=== PATIENT | female | born 1985 | race Caucasian/White ===

== ENCOUNTER 2020-11-15 11:31 | Outpatient (REF) | payer OTHER, SELFPAY ==
[2020-11-15 13:54] LABS: MANUAL DIFF FLAG NO
[2020-11-15 14:04] LABS: Basophils Percent Auto 0.2 % (0-2); Eosinophils Absolute Auto 0.1 X10*3/uL (0.0-0.4); Eosinophils Percent Auto 2.7 % (0-4); Hematocrit 42.6 % (37-47); Hemoglobin 14.1 g/dl (12.0-16.0); Imm Gran Abs Auto 0.02 X10*3/uL (0.00-0.03); Imm Gran Pct Auto 0.5 % (0.0-0.4); Lymphocytes Percent Auto 24.1 % (20-40); Mean Corpuscular HGB Conc 33.1 g/dl (31.0-35.0); Mean Corpuscular Hemoglobin 28.8 pg (27.0-33.0); Mean Corpuscular Volume 87.1 fL (80-98); Mean Platelet Volume 11.1 fL (9.4-12.3); Monocytes Absolute Auto 0.4 X10*3/uL (0.1-1.2); Neutrophils Absolute Auto 2.6 X10*3/uL (2.0-8.3); Neutrophils Percent Auto 63.5 % (45-73); Platelet Count 246 X10*3/uL (160-400); Red Blood Count 4.89 X10*6/uL (4.20-5.50); White Blood Count 4.1 X10*3/uL (4.8-10.8)
[2020-11-15 14:38] LABS: Alanine Aminotransferase 38 U/L (0-31); Albumin Level 4.4 g/dL (3.5-5.0); Alkaline Phosphatase 86 U/L (39-117); Anion Gap 13 (12-20); Aspartate Amino Transferase 25 U/L (5-31); Bilirubin Total 0.4 mg/dL (0.0-1.0); Blood Urea Nitrogen 7 mg/dL (9-16); Calcium 9.3 mg/dL (8.4-10.2); Carbon Dioxide 27 mmol/L (22-29); Chloride 101 mmol/L (96-108); Cholesterol 214 mg/dL; Estimated Glomerular Filt Rate > 60; Glucose Random 84 mg/dL (60-115); Potassium 4.3 mmol/L (3.3-5.1); Sodium 137 mmol/L (135-145); Total Protein 7.3 g/dL (6.5-8.0)
[2020-11-15 15:00] LABS: Thyroid Stimulating Hormone 2.25 uIU/mL (0.32-4.0)
== END 2020-11-15 11:32 | disposition home or self-care (01) ==
LOC: HO.10HDL 11:31
PROVIDERS: Visit Provider Internal Medicine
DX: Z00.00 Encounter for general adult medical examination without abnormal findings (principal); R63.5 Abnormal weight gain
CPT/HCPCS: 36415; 80053; 82465; 84443; 85025

== ENCOUNTER 2021-04-11 16:07 | Outpatient (REF) | payer OTHER, SELFPAY ==
[2021-04-11 17:36] LABS: MANUAL DIFF FLAG NO
[2021-04-11 17:41] LABS: Basophils Percent Auto 0.2 % (0-2); Eosinophils Absolute Auto 0.1 X10*3/uL (0.0-0.4); Eosinophils Percent Auto 1.7 % (0-4); Hematocrit 44.7 % (37-47); Hemoglobin 14.7 g/dl (12.0-16.0); Imm Gran Abs Auto 0.02 X10*3/uL (0.00-0.03); Imm Gran Pct Auto 0.3 % (0.0-0.4); Lymphocytes Percent Auto 16.8 % (20-40); Mean Corpuscular HGB Conc 32.9 g/dl (31.0-35.0); Mean Corpuscular Hemoglobin 30.4 pg (27.0-33.0); Mean Corpuscular Volume 92.4 fL (80-98); Mean Platelet Volume 11.4 fL (9.4-12.3); Monocytes Absolute Auto 0.8 X10*3/uL (0.1-1.2); Monocytes Percent Auto 13.6 % (2-11); Neutrophils Absolute Auto 3.9 X10*3/uL (2.0-8.3); Neutrophils Percent Auto 67.4 % (45-73); Platelet Count 259 X10*3/uL (160-400); Red Blood Count 4.84 X10*6/uL (4.20-5.50); Red Cell Distribution Width 13.6 % (11.0-16.0); White Blood Count 5.7 X10*3/uL (4.8-10.8)
[2021-04-11 17:52] LABS: Glucose Urine UA NEG (NEG); Leukocyte Esterase Urine NEG (NEG); Nitrite Urine NEG (NEG); Specific Gravity - Urine >= 1.030 (1.005-1.025); Urine Blood NEG (NEG); Urine Ketones 5 MG/DL (NEG); Urine Protein NEG (NEG-TRACE)
[2021-04-11 17:53] LABS: Appearance Urine CLEAR; Color Urine YELLOW
[2021-04-11 18:07] LABS: Calcium Oxalate Crystals Urine TRACE /LPF; RBC Urine 0-2 /HPF (0); Squamous Epithelial Cell Urine 2+ /LPF; WBC Urine 0-2 /HPF (0-4)
[2021-04-11 18:27] LABS: Alanine Aminotransferase 14 U/L (0-31); Albumin Level 4.1 g/dL (3.5-5.0); Alkaline Phosphatase 84 U/L (39-117); Anion Gap 12 (12-20); Aspartate Amino Transferase 16 U/L (5-31); Bilirubin Total 0.5 mg/dL (0.0-1.0); Blood Urea Nitrogen 11 mg/dL (9-16); C Reactive Protein 0.82 mg/dL (< or = 0.50); Calcium 9.5 mg/dL (8.4-10.2); Carbon Dioxide 27 mmol/L (22-29); Chloride 105 mmol/L (96-108); Estimated Glomerular Filt Rate > 60; Glucose Random 92 mg/dL (60-115); Potassium 4.6 mmol/L (3.3-5.1); Sodium 139 mmol/L (135-145); Total Protein 7.1 g/dL (6.5-8.0)
== END 2021-04-11 16:08 | disposition home or self-care (01) ==
LOC: HO.LAB 16:07
PROVIDERS: PCP Internal Medicine; Visit Provider Internal Medicine
DX: R10.9 Unspecified abdominal pain (principal)
CPT/HCPCS: 36415; 80053; 81001; 85025; 86140; 87086

== ENCOUNTER 2022-03-13 15:43 | Outpatient (REF) | payer OTHER, SELFPAY | END 2022-03-13 15:44 | disposition home or self-care (01) | LOC: HO.LAB 15:43 | PROVIDERS: PCP Internal Medicine; Visit Provider Internal Medicine | DX: Z13.89 Encounter for screening for other disorder (principal) ==

== ENCOUNTER 2022-03-14 10:51 | Outpatient (REF) | payer OTHER, SELFPAY ==
[2022-03-14 11:05] LABS: Appearance Urine CLEAR; Color Urine YELLOW; Glucose Urine UA NEG (NEG); Leukocyte Esterase Urine NEG (NEG); Nitrite Urine NEG (NEG); Urine Blood NEG (NEG); Urine Ketones NEG (NEG); Urine Protein NEG (NEG-TRACE)
== END 2022-03-14 10:52 | disposition home or self-care (01) ==
LOC: HO.LNP 10:51
PROVIDERS: Visit Provider Internal Medicine
DX: R30.0 Dysuria (principal)
CPT/HCPCS: 81003; 87086

== ENCOUNTER 2022-12-31 18:50 | Outpatient (REF) | payer OTHER, SELFPAY ==
--- NOTE | ~2022-12-31 | MR_ITS ---
EXAMINATION: MR LUMBAR SPINE WITHOUT CONTRAST CLINICAL INFORMATION: Lumbar spine pain. Left SI joint dysfunction. COMPARISON: None available. TECHNIQUE: MRI of the lumbar spine was obtained using routine sequences without contrast. FINDINGS: There are 5 nonrib-bearing lumbar-type vertebral bodies. Slight grade 1 anterolisthesis of L5 on S1. Lumbar alignment is otherwise maintained. Modic type I Modic type II endplate signal changes at L5-S1. There is no additional bone marrow edema. There are no acute fractures. Vertebral body heights are preserved. There is moderate disc volume loss and there is disc desiccation at L5-S1. The remaining disc volumes are maintained and the remaining disc remain well-hydrated. Conus terminates at the L1-L2 level. There are no significant extraspinal soft tissue findings. The L1-L2, L2-L3, L3-L4, and L4-L5 disc contours remain within normal limits. There is no central canal stenosis and there is no foraminal stenosis at these levels. L5-S1: There is a large superiorly migrating left paracentral disc extrusion that compresses the traversing left L5 nerve root within the left L5 lateral recess and is it enters the left L5-S1 neural foramen. The disc extrusion results in mild narrowing of the central canal and the left side. A left lateral disc protrusion and facet arthropathy result in moderate left foraminal stenosis with mass effect on the foraminal segment of the exiting left L5 nerve root as well. MR/MR lumbar spine wo con IMPRESSION: At L5-S1, there is a large superiorly migrating left paracentral disc extrusion that compresses the traversing left L5 nerve root within the left L5 lateral recess and is it enters the left L5-S1 neural foramen. A left lateral disc protrusion and facet arthropathy at L5-S1 also result in moderate left foraminal stenosis with mass effect on the foraminal segment of the exiting left L5 nerve root as well.
== END 2022-12-31 18:51 | disposition home or self-care (01) ==
LOC: HO.MRI 18:50
PROVIDERS: PCP Internal Medicine; Visit Provider Internal Medicine
DX: M54.50 Low back pain, unspecified (principal)
CPT/HCPCS: 72148

== ENCOUNTER 2023-06-24 14:44 | Outpatient (REF) | payer OTHER, SELFPAY | END 2023-06-24 14:45 | disposition home or self-care (01) | LOC: HO.XRAY 14:44 | PROVIDERS: PCP Internal Medicine; Visit Provider Internal Medicine | DX: M53.3 Sacrococcygeal disorders, not elsewhere classified (principal) | CPT/HCPCS: 72220 ==

== ENCOUNTER 2023-08-18 07:48 | Outpatient (RCR) | payer OTHER, SELFPAY ==
--- NOTE | 2023-08-26 18:35 | MHC.PT.EP ---
[facility] [place] Office [place] Office [place] Office [address] Imelda Bradford [address] [phone] F: [phone] F: [phone] F: [phone] F: [phone] Physical Therapy Plan of Care Date of Evaluation: 08/18/23 Date of Surgery: Diagnosis: Tailbone/ sacrococcegeal pain. Assessment: Pt is a 38 y/o female referred to PT for eval and treat of tailbone pain and sacrococcygeal pain who reports she has been in pain since October. She has had an MRI which demonstrated an HNP and has met with a surgeon and has trialed PT prior and had been feeling better before insurance limitations halted progress Pt is a 38 y/o female referred to PT for eval and treat of tailbone pain and sacrococcygeal pain who reports she has been in pain since October. She has had an MRI which demonstrated an HNP and has met with a surgeon and has trialed PT which had been helpful; her condition results in difficulty tying her shoes and dressing in the AM as well as sitting for short duration, traveling, standing and walking for moderate duration as well as lifting objects from the ground secondary to decreased trunk ROM, decreased hip and core strength, L LE radicular Sx, + L LE neural tension, compensated posture and pain. Pt is deemed an appropriate candidate to receive skilled PT services to address their physical impairments in order to improve their functional ability. Frequency and Duration: The patient will be seen 2 x / wk x 6 wks. Short Term Goals: Initiate home program. L LE radicular Sx abolished. Residential Goals: I with home program. Pt will improve Brittany outcome measure by at least 9 points; initial: Improve core strength by at least 1/2 MMT grade. Pt will be able to perform AM dressing without difficulty. Pt will be able to walk long distances with managed Sx. Treatment Plan: Modalities to reduce pain, spasms and effusion. Manual therapy to restore motion and function. Therapeutic exercise to improve strength and flexibility. Neuromuscular re-education for posture and balance. Therapeutic activities to return to functional activities of daily living. Electronically signed by: Timmy Garcia PT. Please sign and return to therapist. Thank you for your referral.
--- NOTE | 2023-12-26 11:40 | MHC.PT.DC ---
[facility] [place] Office [place] Office [place] Office [address] Imelda Bradford 140 [facility] [phone] F: [phone] F: [phone] F: [phone] F: [phone] Physical Therapy Discharge Report Diagnosis: Tailbone/ sacrococcegeal pain. Date of Surgery: Date of Evaluation: 08/18/23 Date of Discharge: 12/26/23 Treatments to Date: 1 Cancellations to Date: 3 No Shows to Date: Discharge Status: Visit Non-compliance Discharge Summary: Electronically signed by: Timmy Garcia PT. Please sign and return to therapist. Thank you for your referral.
== END 2023-12-26 11:41 | disposition home or self-care (01) ==
LOC: HO.PT 07:48
PROVIDERS: PCP Internal Medicine; Visit Provider Internal Medicine
DX: M53.3 Sacrococcygeal disorders, not elsewhere classified (principal)
CPT/HCPCS: 97110; 97161

== ENCOUNTER 2023-08-18 18:09 | Emergency (ER) | payer OTHER, SELFPAY ==
--- NOTE | 2023-08-18 18:29 | ED.BACK ---
HPI - Back Pain/Injury General Chief Complaint: Back Pain/Injury Stated Complaint: LT low back pain Time Seen by Provider: 08/18/23 18:35 Source: patient Mode of arrival: ambulatory Limitations: no limitations History of Present Illness HPI Narrative: 38 yo female with past medical history chronic back pain since October here with complaints of left lower back pain with radiation to leg which has been worsened over the last 1 month. Went to PT this morning and now pain is worsened. Taking tylenol at home with continued symptoms. No radiation of pain. No incontinence of urine or stool. No numbness in the groin. No fevers or chills. Patient is ambulatory. Related Data Previous Rx's Medication Instructions Recorded cyclobenzaprine 10 mg tablet 10 mg PO TID PRN muscle spasm #15 08/18/23 tabs ibuprofen 800 mg tablet 800 mg PO Q8H PRN pain #30 tabs 08/18/23 lidocaine 5 % topical patch 1 patch topical DAILY #15 ea 08/18/23 (Lidoderm) Allergies Allergy/AdvReac Type Severity Reaction Status Date / Time No Known Allergies Allergy Verified 08/18/23 18:29 Review of Systems Review of Systems: Yes all other systems are reviewed and are negative Constitutional: Constitutional: Reports no additional constitutional complaints, Denies body ache(s), Denies chills, Denies fever(s), Denies headache(s) and Denies weakness Eyes: Eyes: Reports no additional eye complaints and Denies change in vision ENT: Reports system reviewed and no additional complaints, except as documented, Denies dizziness, Denies headache(s), Denies nasal congestion, Denies nasal discharge and Denies neck pain Cardiovascular: Cardiovascular: Reports no additional cardiovascular complaints, Denies chest pain, Denies leg edema and Denies dyspnea Respiratory: Respiratory: Reports no additional respiratory complaints, Denies cough and Denies dyspnea Gastrointestinal: Gastrointestinal: Reports no additional gastrointestinal complaints, Denies abdominal pain, Denies diarrhea, Denies nausea and Denies vomiting Genitourinary: Genitourinary: Reports no additional female genitourinary complaints and Denies urinary incontinence Musculoskeletal: Musculoskeletal: Reports no additional musculoskeletal complaints, Reports back pain, Denies arthralgias, Denies joint swelling, Denies neck pain, Denies numbness and Denies tingling Integumentary/Breasts: Skin/Breast: Reports system reviewed and no additional complaints, except as docu and Denies rash Neurologic: Reports system reviewed and no additional complaints, except as documented, Denies Abnormal speech present, Denies dizziness, Denies headache(s), Denies numbness, Denies tingling and Denies weakness PMFSH Past Medical History Attestation statement: The following information was validated with the patient. Source: old records reviewed and nursing notes reviewed Physical Exam Vital Signs: Vital Signs: Last Vital Signs Temp 98.0 F 08/18/23 18:30 Pulse 76 08/18/23 18:30 Resp 16 08/18/23 18:30 BP 175/118 H 08/18/23 18:30 Pulse Ox 98 08/18/23 18:30 O2 Del Method Room Air 08/18/23 18:30 BMI result Body Mass Index 32.6 Const: General: cooperative, healthy appearing, comfortable and no acute distress Orientation/consciousness: patient oriented x3 Limitations: no limitations HEENT: Head: Yes normal to inspection Ears: hearing grossly normal bilaterally General nose exam: Normal external nose present Face and sinus: Yes normal facial exam Mouth: Normal oral and palatal mucosa present Throat: Yes posterior oropharynx normal Eyes: General: appearance normal, both eyes and all related structures Pupils: Equal, round and reactive pupils present Neck: Neck: Yes normal visual inspection Chest: Chest palpation & inspection: normal inspection of the chest Resp: Effort & Inspection: normal respiratory effort Auscultation: clear to auscultation bilaterally Cardio: Rate: regular rate Rhythm: regular rhythm Peripheral pulses: Peripheral pulses 2+ throughout GI: Inspection: Yes normal to inspection Palpation (GI): Soft to palpation and nontender Auscultation: normal bowel sounds Back/Spine/Pelvis: Other: Left lumbar soft tissue tenderness to palp. No midline tenderness, step-offs deformity Thoracic/Lumbar Spine: thoracic and lumbar spine normal to inspection Skin: General skin exam: no rashes or lesions noted Neuro: General: patient oriented x3, no focal motor deficits and normal sensation to monofilament Cranial nerves: Yes Equal, round and reactive pupils present Cognition (Neuro): normal cognition Speech: No Abnormal speech present Gait exam (Neuro): Normal gait present Motor exam (neuro): 5/5 motor strength present throughout Sensory Exam: Normal double simultaneous stimulation for sensation Deep tendon reflexes (DTR's): Right patellar reflex intensity grade: 2+ and Left patellar reflex intensity grade: 2+ Extrem: General: Yes normal to inspection Course Course Course Narrative: This is a rapid medical exam. Deferred additional HPI, ROS, PE to primary provider. 38 yo female with past medical history chronic back pain since October here with complaints of left lower back pain with radiation to leg. Went to PT this morning with worsened pain since then Taking ibuprofen with continued symptoms Medical Decision Making Medical Decision Making [facility] Narrative: 38 yo female with past medical history chronic back pain since October here with complaints of left lower back pain with radiation to leg which has been worsened over the last 1 month. Went to PT this morning and now pain is worsened. Taking tylenol at home with continued symptoms. No radiation of pain. No incontinence of urine or stool. No numbness in the groin. No fevers or chills. Patient is ambulatory. Of note patient had MRI 12/31/2022 which shows At L5-S1, there is a large superiorly migrating left paracentral disc extrusion that compresses the traversing left L5 nerve root within the left L5 lateral recess and is it enters the left L5-S1 neural foramen. A left lateral disc protrusion and facet arthropathy at L5-S1 also result in moderate left foraminal stenosis with mass effect on the foraminal segment of the exiting left L5 nerve root as well. Normal neuro exam with no focal deficits or red flag symptoms Will be provided Toradol IM Will send patient home with NSAID, muscle relaxant, medicated patches with recommendations for supportive care at home, PT as tolerated. Asymptomatic hypertension-can follow with primary care Differential Diagnosis Differential Diagnoses: The differential diagnosis associated with the presentation includes Lumbar radiculopathy, lumbar strain, back, herniated disc Low concern for epidural abscess, cord compression, cauda equina, malignancy-no neuro deficits, red flag symptoms, immunocompromised state, IVDA Low concern for renal colic, pyelonephritis, AAA-low concern with gradual onset Admission/Observation Consideration of admission/observation: Escalation of care including admission/observation considered No neurological deficits or red flag symptoms suggest need for emergent MRI, emergent orthopedic or neurosurgery consultation Independent Historian Clinical information obtained from an independent historian. History obtained from or confirmed by: Parent Tests considered The following testing was considered but not selected: No neurological deficits or red flag symptoms suggest need for emergent MRI Prescription Management I considered prescription management with: Pain Medication Discharge Plan Discharge Clinical Impression: Back pain Patient Disposition: Home, Self-Care Instructions: Back Pain (ED) Additional Instructions: Heat or ice gentle stretching continue to follow-up with PT and your PCP Follow-up with your PCP for a blood pressure re-check Prescriptions: New ibuprofen 800 mg tablet 800 mg PO Q8H PRN (Reason: pain) Qty: 30 0RF cyclobenzaprine 10 mg tablet 10 mg PO TID PRN (Reason: muscle spasm) Qty: 15 0RF lidocaine [Lidoderm] 5 % adhesive patch,medicated 1 patch topical DAILY Qty: 15 0RF Rx Instructions: leave on most painful area for up to 12 hrs Referrals: ED Physician,Generic [Emergency Provider] - Stand Alone Forms: Work/School Release
[2023-08-18 18:30] VITALS: BP 175/118; PULSE 76; RESP 16; TEMP 36.7; O2SAT 98; BMI 32.6
[2023-08-18] MEDS: Ketorolac Tromethamine 60 MG/2 ML VIAL IM (18:38)
== END 2023-08-18 18:54 | disposition home or self-care (01) ==
PROVIDERS: Emergency Provider Emergency Medicine; PCP Internal Medicine
DX: M54.50 Low back pain, unspecified (principal)
CPT/HCPCS: 96372; 99283; 99284; J1885

== ENCOUNTER 2024-12-30 13:47 | Outpatient (AMB) | payer OTHER, SELFPAY ==
--- NOTE | 2024-12-30 13:49 | A.OFFPC_ITS ---
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 Hasn't seen her pcp in >2 years Anxiety: on Venlafaxine 75 mg daily. 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 HEENT: Denies changes in vision and hearing. RESPIRATORY: Denies SOB and cough. CV: Denies palpitations and CP GI: Denies abdominal pain, nausea, vomiting and diarrhea. : Denies dysuria and urinary frequency. MSK: Denies new myalgia and joint pain. SKIN: Denies rash and pruritus. NEUROLOGICAL: Denies headache PSYCHIATRIC: Denies recent changes in mood. PHYSICAL EXAM: GENERAL: Alert and oriented x 3. NAD EYES: EOMI. Anicteric. HENT: Moist mucous membranes. No scleral icterus. No cervical lymphadenopathy. LUNGS: Clear to auscultation bilaterally. CARDIOVASCULAR: Regular rate and rhythm. No murmur. No JVD. ABDOMEN: Soft, non-tender +bs EXTREMITIES: No edema. Non-tender. SKIN: No rashes or lesions. Warm. NEUROLOGIC: No focal neurological deficits. CN II-XII grossly intact PSYCHIATRIC: Cooperative. Appropriate mood and affect [facility] Family History Mother No problems noted. Father No problems noted. Social History Housing: House Patient Tobacco Use Status: Former Tobacco user e-Cigarette/Vaping Use: Former Use service: No Current occupational status: employed Cognitive needs: No Hearing needs: No Vision needs: No Questionnaire PHQ-9 Over the last 2 weeks, how often have you been bothered by any of the following problems? 1. Little interest or pleasure in doing things: not at all 2. Feeling down, depressed, or hopeless: several days 3. Trouble falling or staying asleep, or sleeping too much: not at all 4. Feeling tired or having little energy: not at all 5. Poor appetite or overeating: not at all 6. Feeling bad about yourself - or that you are a failure or have let yourself or your family down: not at all 7. Trouble concentrating on things, such as reading the newspaper or watching television: not at all 8. Moving or speaking so slowly that other people could have noticed. Or the opposite - being so fidgety or restless that you have been moving around a lot more than usual: not at all 9. Thoughts that you would be better off or of hurting yourself in some way: not at all Total score: 1 Depression Screening Interpretation: Negative Depression Screening Done: Yes [id number] - PHQ-9 Billing: Yes Source: Developed by Drs. Jame Aguirre, Vera Voss, Prashanth Nelson and colleagues, with an educational umesh from [employer]. Thrive Questionnaire Date Thrive assessed: 12/30/24 I am a: Patient Within the past 12 months, did the food you bought not last and you didn't have the money to get more?: Never true Within the past 12 months, did you worry whether your food would run out before you got money to buy more?: Never true Do you have trouble paying for medicines?: No Do you have trouble getting transportation to medical appointments?: No Do you have trouble paying your heating and electricity bill?: No Do you have trouble taking care of your child, family member or friend?: No Do you have trouble with day-to-day activities such as bathing, preparing meals, shopping, managing finances, etc.?: No Are you currently unemployed and looking for a job?: No Are you interested in more education?: No THRIVE Score: 0 AUDIT C Alcohol Use Questionnaire (AUDIT-C) 1. How often do you have a drink containing alcohol?: Monthly or less 2. How many drinks containing alcohol do you have on a typical day when you are drinking?: 1 or 2 3. How often do you have six or more drinks on one occasion?: Less than monthly Total Score: 2 ZOEY-7 AMB Questionnaire ZOEY-7 Date ZOEY - 7 assessed: 12/30/24 Feeling nervous, anxious, or on edge: 1 = Several days Not being able to stop or control worryin = Not at all Worrying too much about different things: 0 = Not at all Trouble relaxin = Not at all Being so restless that it is hard to sit still: 0 = Not at all Becoming easily annoyed or irritable: 0 = Not at all Feeling afraid as if something awful might happen: 0 = Not at all Total ZOEY-7 score (0-4 normal; 5-9 mild; 10-14 moderate; 15-21 severe): 1 Source: Developed by Drs. Jame Aguirre, Vera Voss, Prashanth Nelson and colleagues, with an educational umesh from [employer]. Physical exam (Primary Care) Vital Signs: Last Vital Signs Temp 97.9 F 12/30/24 14:11 Pulse 85 12/30/24 14:11 BP 126/80 12/30/24 14:11 Pulse Ox 99 12/30/24 14:11 Oxygen Delivery Method Room Air 12/30/24 14:11 BMI result Body Mass Index 31.0 Tobacco/Smoking Status: Tobacco use Status Tobacco use date assessed 12/30/24 12/30/24 13:52 Patient Tobacco Use Status Former Tobacco user 12/30/24 14:21 e-Cigarette/Vaping Use Former Use 12/30/24 14:21 PHQ-9: PHQ-9 Score PHQ-9: Total score 1 12/30/24 14:25 Depression Screening Interpretation: Negative Thrive Assessment: Date of Thrive Assessment Date Thrive assessed 12/30/24 12/30/24 13:52 Coding Level of Care Code New Pt Level 4 (61933) Complex EM visit Add On G2211 Diagnoses Heartburn R12 Anxiety F41.9 Vision changes H53.9 Additional Codes PHQ-9 - 15867 - PHQ-9 Billing: Yes ([id number]) Assessment & Plan Assessment & Plan (1) Heartburn: Code(s): R12 - Heartburn Category: Medical (2) Anxiety: Code(s): F41.9 - Anxiety disorder, unspecified Category: Medical (3) Vision changes: Code(s): H53.9 - Unspecified visual disturbance Category: Medical Plan 39 year old to establish care GERD-start one month PPI. follow up if symptoms persist Anxiety is fairly stable on SNRI however she does generally need xanax for flying and acute anxiety Referral for ophtho Labs ordered. follow up prn Orders: Orders Complete Blood Count Auto Diff 12/30/24 F41.9 - Anxiety disorder, unspecified, H53.9 - Unspecified visual disturbance, R12 - Heartburn, Z13.0 - Encounter for screening for diseases of the blood and blood-forming organs and certain disorders involving the immune mechanism, Z13.220 - Encounter for screening for lipoid disorders, Z13.228 - Encounter for screening for other metabolic disorders Comprehensive Met. Panel 12/30/24 F41.9 - Anxiety disorder, unspecified, H53.9 - Unspecified visual disturbance, R12 - Heartburn, Z13.0 - Encounter for screening for diseases of the blood and blood-forming organs and certain disorders involving the immune mechanism, Z13.220 - Encounter for screening for lipoid disorders, Z13.228 - Encounter for screening for other metabolic disorders Lipid Panel 12/30/24 F41.9 - Anxiety disorder, unspecified, H53.9 - Unspecified visual disturbance, R12 - Heartburn, Z13.0 - Encounter for screening for diseases of the blood and blood-forming organs and certain disorders involving the immune mechanism, Z13.220 - Encounter for screening for lipoid disorders, Z13.228 - Encounter for screening for other metabolic disorders TSH reflex Free T4 12/30/24 F41.9 - Anxiety disorder, unspecified, H53.9 - Unspecified visual disturbance, R12 - Heartburn, Z13.0 - Encounter for screening for diseases of the blood and blood-forming organs and certain disorders invo lving the immune mechanism, Z13.220 - Encounter for screening for lipoid disorders, Z13.228 - Encounter for screening for other metabolic disorders Hemoglobin A1c 12/30/24 F41.9 - Anxiety disorder, unspecified, H53.9 - Unspecified visual disturbance, R12 - Heartburn, Z13.0 - Encounter for screening for diseases of the blood and blood-forming organs and certain disorders involving the immune mechanism, Z13.220 - Encounter for screening for lipoid disorders, Z13.228 - Encounter for screening for other metabolic disorders Referrals Ophthalmology Referral H53.9 - Unspecified visual disturbance Medications: New omeprazole 20 mg PO DAILY 90 caps 0RF alprazolam 1 mg PO BID PRN 20 tabs 0RF anxiety/flying 30 days Discontinued cyclobenzaprine Discontinued Reason: Patient no longer taking 10 mg PO TID PRN 15 tabs 0RF muscle spasm lidocaine 5% (Lidoderm) leave on most painful area for up to 12 hrs Discontinued Reason: Patient no longer taking 1 patch topical DAILY 15 ea 0RF
[2024-12-30 14:11] VITALS: BP 126/80; PULSE 85; TEMP 36.6; O2SAT 99; BMI 31.0
== END 2024-12-30 14:44 | disposition home or self-care (01) ==
LOC: HO.HMCHD 13:48
PROVIDERS: PCP Internal Medicine; Visit Provider Internal Medicine
DX: R12 Heartburn (principal); F41.9 Anxiety disorder, unspecified; H53.9 Unspecified visual disturbance

== ENCOUNTER → 2024-12-30 13:47 | Outpatient (BNVA) | payer SELFPAY | PROVIDERS: PCP Internal Medicine; Visit Provider Internal Medicine | DX: R12 Heartburn (principal); F41.9 Anxiety disorder, unspecified; H53.9 Unspecified visual disturbance; K21.9 Gastro-esophageal reflux disease without esophagitis | CPT/HCPCS: 96127; 99202 ==

== ENCOUNTER 2025-07-21 14:05 | Outpatient (AMB) | payer SELFPAY ==
[2025-07-21 09:09] VITALS: BP 126/82; PULSE 100; TEMP 36.4; O2SAT 99; BMI 33.7
--- NOTE | 2025-07-21 09:09 | A.OFFPC_ITS ---
Vital Signs 07/21/25 09:09 Height 5 ft 1 in Weight 178 lb 4 oz BMI 33.7 BP 126/82 Blood Pressure Location Lt brachial Position Sitting Pulse 100 Pulse Source Pulse Oximeter Temp 97.5 F Temp Source Temporal Artery Scan Pulse Oximetry (%) 99 Oxygen Delivery Method Room Air Intake Visit Reasons: Annual - see comments Endocrinology Physician Required: No Accompanied by: Self / Same As Patient Allergies No Known Allergies Allergy (Verified 07/21/25 09:10) Medication List - Last Reconciled 07/24/25 by ERIC Levy alprazolam 1 mg PO BID PRN 30 days omeprazole 20 mg PO DAILY valacyclovir 500 mg PO DAILY venlafaxine ER 150 mg PO DAILY Tobacco use date assessed: 07/21/25 Dental Screening Dental Screen Date: 07/21/25 Did you have a dental visit in the last 12 months?: No Did you have a dental problem in the last 6 months where you did not have access to dental care?: No HPI HPI Comments History of Present Illness Details The patient is a 40-year-old female with HAs, GERD, anxiety, LBP, HSV and Obesity presenting with anxiety, vision problems, and acid reflux. The patient has been experiencing anxiety for several years and has been on venlafaxine 75mg for approximately five years. She reports that while she can manage her anxiety better, there are times when it becomes severe, prompting consideration for an increased dosage. Alprazolam is used as needed, primarily for flying or during panic episodes, though usage has been minimal. Vision problems have been a concern, with initial improvement after obtaining eyeglasses, but symptoms have resurfaced. The patient experiences headaches and dizziness, particularly while driving, which she attributes to her vision issues. The eye doctor recommended blood work to rule out underlying causes such as anemia, thyroid dysfunction, or hyperglycemia. The patient has been taking omeprazole for acid reflux, which initially helped with symptoms of nausea and headaches. However, discontinuation led to a significant worsening of symptoms, confirming the need for continued use. Fatigue has been noted, and the patient is unsure if it is related to her vision issues or another underlying condition. The physician plans to conduct blood work to investigate potential causes, including anemia and thyroid issues. Patient was informed and verbally consented to the use of an ambient scribe for clinic note documentation during this visit. [facility] Medical History (Updated 07/21/25 @ 14:42 by ERIC Levy) Blurry vision Fatigue Family History (Updated 07/21/25 @ 14:20 by Sindy Handley MA) Mother No problems noted. Father No problems noted. Social History Housing: House Patient Tobacco Use Status: Former Tobacco user e-Cigarette/Vaping Use: Former Use service: No Current occupational status: employed Cognitive needs: No Hearing needs: No Vision needs: Yes (rx glasses) Questionnaire PHQ-9 Over the last 2 weeks, how often have you been bothered by any of the following problems? 1. Little interest or pleasure in doing things: not at all 2. Feeling down, depressed, or hopeless: nearly every day (pt has anxiety everyday) 3. Trouble falling or staying asleep, or sleeping too much: nearly every day (trouble falling asleep some night ) 4. Feeling tired or having little energy: nearly every day 5. Poor appetite or overeating: nearly every day 6. Feeling bad about yourself - or that you are a failure or have let yourself or your family down: not at all 7. Trouble concentrating on things, such as reading the newspaper or watching television: not at all 8. Moving or speaking so slowly that other people could have noticed. Or the opposite - being so fidgety or restless that you have been moving around a lot more than usual: not at all 9. Thoughts that you would be better off or of hurting yourself in some way: not at all Total score: 12 Depression Screening Interpretation: Positive Depression Screening Follow-up: In treatment and Follow-up Visit Requested Depression Screening Done: Yes Source: Developed by Drs. Jame Aguirre, Vera Voss, Prashanth Nelson and colleagues, with an educational umesh from [employer]. Thrive Questionnaire Date Thrive assessed: 07/21/25 I am a: Patient Within the past 12 months, did the food you bought not last and you didn't have the money to get more?: Never true Within the past 12 months, did you worry whether your food would run out before you got money to buy more?: Never true Do you have trouble paying for medicines?: No Do you have trouble getting transportation to medical appointments?: No Do you have trouble paying your heating and electricity bill?: No Do you have trouble taking care of your child, family member or friend?: No Do you have trouble with day-to-day activities such as bathing, preparing meals, shopping, managing finances, etc.?: No Are you currently unemployed and looking for a job?: No Are you interested in more education?: No THRIVE Score: 0 AUDIT C Alcohol Use Questionnaire (AUDIT-C) 1. How often do you have a drink containing alcohol?: Monthly or less 2. How many drinks containing alcohol do you have on a typical day when you are drinking?: 1 or 2 3. How often do you have six or more drinks on one occasion?: Less than monthly Total Score: 2 ZOEY-7 AMB Questionnaire ZOEY-7 Date ZOEY - 7 assessed: 07/21/25 Feeling nervous, anxious, or on edge: 0 = Not at all Not being able to stop or control worryin = Not at all Worrying too much about different things: 0 = Not at all Trouble relaxin = Not at all Being so restless that it is hard to sit still: 0 = Not at all Becoming easily annoyed or irritable: 0 = Not at all Feeling afraid as if something awful might happen: 0 = Not at all Total ZOEY-7 score (0-4 normal; 5-9 mild; 10-14 moderate; 15-21 severe): 0 Source: Developed by Drs. Jame Aguirre, Vera Voss, Prashanth Nelson and colleagues, with an educational umesh from [employer]. Review of Systems Narrative CONSTITUTIONAL Negative HEAD/NECK Reports vision problems, initially improved with eyeglasses but symptoms have resurfaced EAR/NOSE/MOUTH/THROAT Negative RESPIRATORY Denies cough, chest pain, or dyspnea CARDIOVASCULAR Negative GASTROINTESTINAL Reports nausea and headaches related to acid reflux, improved with omeprazole MUSCULOSKELETAL Negative NEUROLOGICAL Reports headaches and dizziness, particularly while driving PSYCHIATRIC Negative Physical exam (Primary Care) Vital Signs: Last Vital Signs Temp 97.5 F 07/21/25 09:09 Pulse 100 07/21/25 09:09 BP 126/82 07/21/25 09:09 Pulse Ox 99 07/21/25 09:09 Oxygen Delivery Method Room Air 07/21/25 09:09 BMI result Body Mass Index 33.7 GENERAL Well developed, obese, in no apparent distress HEENT Head-Normocephalic Eyes- PERRLA, EOMI, Conjuctiva clear, lids WNL Ears- Canals clear, TMs WNL Mouth/Throat-No lesions, no erythema, no exudate Neck- Supple, No lymphadenopathy, thyroid WNL RESPIRATORY Normal I:E, Clear to auscultation CARDIOVASCULAR Regular, rate and rhythm, No murmurs or rubs GASTROINTESTINAL Soft, nontender, normal bowel sounds, no masses MUSCULOSKELETAL Back- nontender Joints- no swelling or deformity NEUROLOGICAL Gait normal PSYCHIATRIC Oriented to person, place and time Mood and affect depressed and anxious Appearance WNL Speech WNL Thought processes WNL Tobacco/Smoking Status: Tobacco use Status Tobacco use date assessed 07/21/25 07/21/25 09:11 Patient Tobacco Use Status Former Tobacco user 07/21/25 09:11 e-Cigarette/Vaping Use Former Use 07/21/25 09:11 PHQ-9: PHQ-9 Score PHQ-9: Total score 12 07/24/25 19:30 Depression Screening Interpretation: Positive Depression Screening Follow-up: In treatment and Follow-up Visit Requested Thrive Assessment: Date of Thrive Assessment Date Thrive assessed 07/21/25 07/21/25 09:11 Coding Level of Care Code Established Pt Est Pt Level 4 (83270) Patient Type Established Diagnoses Anxiety F41.9 Vision changes H53.9 Heartburn R12 Fatigue R53.83 Time Spent (min) 35 Comment Time spent on chart review, medication reconciliation, H&P, patient education, orders. Assessment & Plan Assessment & Plan (1) Anxiety: Code(s): F41.9 - Anxiety disorder, unspecified Category: Medical Plan: The patient will have her venlafaxine dosage increased from 75 mg to 150 mg to better manage her anxiety symptoms. Alprazolam will continue to be used as needed for acute anxiety episodes, particularly during flights. Patient to follow up in 2 months or sooner if symptoms persist or worsen. (2) Vision changes: Code(s): H53.9 - Unspecified visual disturbance Category: Medical Plan: Blood work will be conducted to rule out anemia, thyroid dysfunction, and hyperglycemia as potential causes for the patient's vision problems. If blood work results are normal, the patient will be advised to revisit the eye doctor for further evaluation. (3) Heartburn: Code(s): R12 - Heartburn Category: Medical Plan: The patient will continue taking omeprazole for acid reflux management. A prescription for omeprazole will be provided, with the option to purchase [id number] if more cost-effective. Patient to follow up in 2 months or sooner if symptoms persist or worsen. (4) Fatigue: Code(s): R53.83 - Other fatigue Category: Medical Plan: Fatigue will be evaluated through blood work to check for anemia and thyroid issues, similar to the workup for vision problems. Plan I discussed with the patient the plan to increase her venlafaxine dosage to 150 mg to better manage her anxiety symptoms. We also talked about conducting blood work to investigate her vision problems and fatigue, focusing on ruling out anemia, thyroid dysfunction, and hyperglycemia. The patient was advised to continue using omeprazole for acid reflux and to consider cost-effective options for obtaining the medication. A follow-up appointment was suggested in two months to reassess her condition and discuss further management options. Orders: Orders Complete Blood Count no Diff 07/21/25 H53.8 - Other visual disturbances, R53.83 - Other fatigue Basic Metabolic Panel 07/21/25 H53.8 - Other visual disturbances, R53.83 - Other fatigue Medications: New valacyclovir 500 mg PO DAILY 90 tabs 3RF venlafaxine ER dosage adjustment 150 mg PO DAILY 90 tabs 1RF Refilled omeprazole 20 mg PO DAILY 90 caps 2RF for acid Discontinued venlafaxine Discontinued Reason: Doctor's Order 75 mg PO DAILY 90 tabs 1RF Patient Instructions: - Continue taking venlafaxine at the new dosage of 150 mg daily. - Use alprazolam as needed for anxiety, especially during flights. - Take omeprazole daily for acid reflux management. - Schedule and complete blood work to investigate vision problems and fatigue. - Consider cost-effective options for obtaining omeprazole, either by prescription or [id number]. - Follow up in two months or sooner if symptoms worsen.
--- OUTSIDE RECORDS SUMMARY | 2025-07-21 17:08 | XMS_ITS | Clinical Summary ---
Author Organization [facility] Address [address] [place] [phone] Phone Care Team Providers Care Devulcanizer Loader Name Role Phone Unknown, Unknown Primary Care Provider Unavai lable Allergies No known active allergies Medications lorazepam (ATIVAN ORAL) Take by mouth. Active Immunizations Immunization Administration Dates Next Due Tdap 02/27/2018 Social History Tobacco Use Types Packs/Day Years Used Date Smoking Tobacco: Every Day Cigarettes Smokeless Tobacco: Never Alcohol Use Standard Drinks/Week Comments Yes 0 (1 standard drink = 0.6 oz pur e alcohol) Education Answer Date Recorded Are you interested in more education? Not on christiano e 01/17/2023 Are you concerned about learning? Not on file 01/17/2023 No 01/17/2023 No 01/17/2023 Digital Access Answer Date Recorded No 02/18/2023 No 02/18/2023 No 02/18/2023 Reliable internet access at home? Not on file 02/18/2023 Device with a working camera? Not on file Comments Unknown Sex and Gender Information Value Date Recorded Sex Assigned at Female 02/27/2018 9:20 PM EDT Legal Sex Female 9:15 PM EDT Gender Identity Female 02/27/2018 9:20 PM EDT Sexual Orientation Straight 02/27/2018 9: 20 PM EDT Last Filed Vital Signs Vital Sign Reading Time Taken Comments Blood Pressure 128/97 07/25/2018 11:45 PM EDT Pulse 58 07/25/2018 11:45 PM EDT Temperature 36.8 C (98.2 F) 07/25/2018 11:45 PM EDT Respiratory Rate 18 07/25/2018 11:45 PM EDT Oxygen Saturation 100% 07/25/2018 11:45 PM EDT Inhaled Oxygen Concentration - - Weight 56.7 kg (125 lb) 07/25/2018 10:35 PM EDT Height 154.9 cm (5' 1 ) 07/25/2018 10:35 PM EDT Body Mass Index 23.62 07/25/2018 10:35 PM EDT Plan of Treatment Health Maintenance Due Date Last Done Comments DEPRESSION SCREENING 1998 SMOKING Hx and SMOKELESS TOB ACCO SCREENING 1999 HEPATITIS C SCREENING 2004 HIV ONE-TIME SCREENING (18-6 5 YEARS) 2004 PNEUMOCOCCAL VACCINES (0-49 years) (1 of 2 - PCV) 2005 PAP SMEAR 2007 INFLUENZA VACCINE (#1) 2025 COVID-19 VACCINE (2 - 2024-2 6 season) 2025 01/19/2021 Adult Td,Tdap Booster 02/28/2028 02/27/2018 HEPATITIS A VACCINES Aged Out No long er eligible based on patient's age to complete this topic HIB VACCINES Aged Out No longer eligi ble based on patient's age to complete this topic MENINGOCOCCAL VACCINES (ACWY) Aged Out No longer eligible based on patient's age to complete this topic MENINGOCOCCAL VACCINES (B) Aged Out N o longer eligible based on patient's age to complete this topic Medical Devices Not on file Insurance HEALTH SAF[employer]Y NET PARTIAL HEALTH SAFETY NET PARTIAL HEALTH SAFETY NET PARTIAL HEALTH SAFETY NET PARTIAL HEALTH SAFETY NET PARTIAL HEALTH SAFETY NET PARTIAL HEALTH SAFETY NET PARTIAL HEALTH SAFETY NET PARTIAL HEALTH SAFETY NET PARTIAL Care Teams Devulcanizer Loader Relationship Specialty Start Date End Date Unknown, Unknown, PCP - General 02/27/18 Additional Source Comments The information contained in this document represents components of the legal health record. It is not the complete legal health record.[facility]
--- OUTSIDE RECORDS SUMMARY | 2025-07-21 17:08 | XMS_ITS | Encounter Summary ---
Author Organization [facility] Address [address] [place] [address] Care Team Providers Care Excavating Supervisor Name Role Phone Eb Contreras MD Primary Care Provider [phone] Encounter Details Date Type Department Care Team (Late st Contact Info) Description 01/21/2025 Scanned Document [address] [place] [address] [phone] Provider, Generic Social History Tobacco Use Types Packs/Day Years Used Date Smoking Tobacco: Never Smokeless Tobacco: Never Comments Unknown Sex and Gender Information Value Date Recorded Sex Assigned at Not on file Legal Sex Female 10:19 AM EDT Gender Identity Not on file Sexual Orientation Not on file documented as of this encounter Plan of Treatment Not on file documented as of this encounter Visit Diagnoses Not on filedocumented in this encounter Care Teams Excavating Supervisor Relationship Specialty Start Date End Date Eb Contreras MD [address] [address] PCP - General documented as of this encounter
--- OUTSIDE RECORDS SUMMARY | 2025-07-21 17:08 | XMS_ITS | Clinical Summary ---
Author Organization [facility] Address [address] [place] [address] Care Team Providers Care Parts Room Assistant Name Role Phone Eb Contreras MD Primary Care Provider [phone] Allergies No known active allergies Medications venlafaxine 75 MG Tablet SR 24 hr Take by mouth. Active valACYclovir (VALTREX) 1000 MG tablet Take 150 mg by mouth 2 (two) times a day. Active valACYclovir (VALTREX) 500 MG tablet Take 300 mg by mouth daily. Active fluticasone (FloNASE) 50 mcg/spray nasal sprayIndication s:Acute bacterial sinusitis 1 spray into each nostril daily. 1 each 01/21/2025 Active Social History Tobacco Use Types Packs/Day Years Used Date Smoking Tobacco: Never Smokeless Tobacco: Never Tobacco Cessation:Counseling Given: Not Answered Comments Unknown Sex and Gender Information Value Date Recorded Sex Assigned at Not on file Legal Sex Female 10:19 AM EDT Gender Identity Not on file Sexual Orientation Not on file Last Filed Vital Signs Vital Sign Reading Time Taken Comments Blood Pressure 139/94 01/21/2025 1:48 PM EDT Pulse 96 01/21/2025 1:48 PM EDT Temperature 37 C (98.6 F) 01/21/2025 1:48 PM EDT Respiratory Rate 18 01/21/2025 1:48 PM EDT Oxygen Saturation 98% 01/21/2025 1:48 PM EDT Inhaled Oxygen Concentration - - Weight 72.6 kg (160 lb) 01/21/2025 1:48 PM EDT Height 154.9 cm (5' 1 ) 01/21/2025 1:48 PM EDT Body Mass Index 30.23 01/21/2025 1:48 PM EDT Plan of Treatment Health Maintenance Due Date Last Done Comments Hepatitis C Virus Screening 1986 DTaP/Tdap/Td Vaccines (1 - Tdap) 2005 Hepatitis B Vaccines (1 of 3 - 19+ 3-dose series) 2005 Pap Smear (Ages 21-65) 2007 Influenza Vaccine 04/22/2025 COVID-19 Vaccine (1 - 2023-2 5 season) 2025 HIV Screening Completed 02/17/2014 HPV Vaccines (No Doses Required) Completed Pneumococcal Vaccine: Pediat dalila (0-5 Years) and At-Risk Patients (6 to 49 Years) Aged Out No longer eligible b ased on patient's age to complete this topic Care Teams Parts Room Assistant Relationship Specialty Start Date End Date Eb Contreras MD [address] [address] PCP - General
--- OUTSIDE RECORDS SUMMARY | 2025-07-21 17:08 | XMS_ITS | Encounter Summary ---
Author Organization [facility] Address [address] [place] [address] Care Team Providers Care Materials Recycler Name Role Phone Eb Contreras MD Primary Care Provider [phone] Encounter Details Date Type Department Care Team (Late st Contact Info) Description 01/21/2025 Scanned Document [address] [place] [address] [phone] Provider, Generic Social History Tobacco Use Types [...] on filedocumented in this encounter Care Teams Materials Recycler Relationship Specialty Start Date End Date Eb Contreras MD [address] [address] PCP - General documented as of this encounter
== END 2025-07-21 15:01 | disposition home or self-care (01) ==
LOC: HO.HMCHD 14:05
PROVIDERS: PCP Internal Medicine; Visit Provider Physician Assistant Medical
DX: F41.9 Anxiety disorder, unspecified (principal); H53.9 Unspecified visual disturbance; R12 Heartburn; R53.83 Other fatigue

== ENCOUNTER 2025-07-21 14:05 | Outpatient (REF) | payer SELFPAY ==
[2025-07-21 15:16] LABS: Hematocrit 40.6 % (37.0-47.0); Hemoglobin 13.3 g/dl (12.0-16.0); Mean Corpuscular HGB Conc 32.8 g/dl (31.0-35.0); Mean Corpuscular Hemoglobin 29.4 pg (27.0-33.0); Mean Corpuscular Volume 89.8 fL (80.0-98.0); NRBC Abs Auto 0.000 X10*3/uL (0.0-0.012); NRBC Pct Auto 0.0 /100WBC (0.0-0.2); Platelet Count 270 X10*3/uL (160-400); Red Blood Count 4.52 X10*6/uL (4.20-5.50); White Blood Count 5.3 X10*3/uL (4.8-10.8)
[2025-07-21 18:05] LABS: Anion Gap 11 (12-20); Blood Urea Nitrogen 12 mg/dL (9-16); Calcium 9.3 mg/dL (8.4-10.2); Carbon Dioxide 29 mmol/L (22-29); Chloride 105 mmol/L (96-108); Estimated Glomerular Filt Rate > 60; Potassium 3.5 mmol/L (3.3-5.1); Sodium 141 mmol/L (135-145)
== END 2025-07-21 14:06 | disposition home or self-care (01) ==
LOC: HO.LAB 14:05
PROVIDERS: PCP Internal Medicine; Visit Provider Physician Assistant Medical
DX: R53.83 Other fatigue (principal); H53.8 Other visual disturbances; F41.9 Anxiety disorder, unspecified; H53.9 Unspecified visual disturbance; R12 Heartburn; Z79.899 Other long term (current) drug therapy
CPT/HCPCS: 36415; 80048; 85027; 96127; 99212